=== PATIENT | female | born 1995 | race Caucasian/White ===

== ENCOUNTER 2018-04-05 16:50 | Emergency (ER) | payer OTHER ==
[2018-04-05] MEDS ORDERED: Nitrofurantoin Monohydrate/Macrocrystalline 100 MG Cap PO ONE (16:51)
[2018-04-05 17:04] VITALS: BP 130/79
[2018-04-05 17:38] LABS: CHLORIDE,CL 101 mEq/L (98-106); SODIUM,NA 137 mEq/L (136-145)
--- NOTE | 2018-04-05 17:46 | EDM.PDOC ---
ED HPI GENERAL MEDICAL PROBLEM - General Chief Complaint: Gastrointestinal Problem Stated Complaint: N/V/D 7 WEEKS Time Seen by Provider: 04/05/18 17:36 Source of Information: Reports: Patient History Limitations: Reports: No Limitations - History of Present Illness INITIAL COMMENTS - FREE TEXT/NARRATIVE: 22 year old female 7 weeks c/o nausea and vomiting, 4 times today and 4 times yesterday. Pt. also admits to diarrhea at least 5 times today and yesterday. Denies abdominal pain except for suprapubic tenderness. Denies any vaginal bleeding. 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) (zofran) Lower Abdomen Pain Score (Numeric/FACES): 5 - Related Data Allergies Allergy/AdvReac Type Severity Reaction Status Date / Time No Known Allergies Allergy Verified 04/05/18 17:07 Home Meds: Home Meds Montelukast [Singulair] 10 mg PO DAILY 12/26/15 [History] Ondansetron [Zofran ODT] 4 mg PO Q6H PRN 04/05/18 [History] Ranitidine HCl 150 mg PO BID 04/05/18 [History] Past Medical History HEENT History: Reports: Allergic Rhinitis, Impaired Vision 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: Endometriosis, , Other (See Below) Other OB/BYN History: ENDOMETRIAL SURGERY AND CERVICAL PRE CANCEROUS REMOVAL - Past Surgical History HEENT Surgical History: Reports: Oral Surgery Social & Family History - Family History Family Medical History: Noncontributory - Tobacco Use Smoking Status *Q: Never Smoker - Caffeine Use Caffeine Use: Reports: None - Recreational Drug Use Recreational Drug Use: No - Living Situation & Occupation Living situation: Reports: , with Spouse Occupation: Employed (works as [employer]ELER) ED ROS GENERAL - Review of Systems Review Of Systems: See Below Constitutional: Reports: Weakness, Fatigue, Decreased Appetite HEENT: Reports: No Symptoms Respiratory: Reports: No Symptoms Cardiovascular: Reports: No Symptoms Endocrine: Reports: No Symptoms GI/Abdominal: Reports: Diarrhea, Nausea, Vomiting : Reports: Pain, Other (suprapubic tenderness) Musculoskeletal: Reports: No Symptoms Skin: Reports: No Symptoms Neurological: Reports: No Symptoms Psychiatric: Reports: No Symptoms Hematologic/Lymphatic: Reports: No Symptoms Immunologic: Reports: No Symptoms ED EXAM, GI/ABD - Physical Exam Exam: See Below Exam Limited By: No Limitations General Appearance: Alert, WD/WN, No Apparent Distress Eyes: Bilateral: Normal Appearance, EOMI Ears: Normal External Exam, Normal Canal, Hearing Grossly Normal Nose: Normal Inspection, Normal Mucosa, No Blood Throat/Mouth: Normal Inspection, Normal Lips, Normal Teeth, Normal Gums, Normal Oropharynx, Normal Voice Head: Atraumatic, Normocephalic Neck: Normal Inspection, Supple, Non-Tender, Full Range of Motion Respiratory/Chest: No Respiratory Distress, Lungs Clear, Normal Breath Sounds, No Accessory Muscle Use Cardiovascular: Normal Peripheral Pulses, Regular Rate, Rhythm, No Edema, No Gallop, No JVD, No Murmur, No Rub GI/Abdominal Exam: Normal Bowel Sounds, Soft, No Organomegaly, No Distention, No Abnormal Bruit, No Mass, Tender, Other (mild suprapubic tenderness) (Female) Exam: Deferred Rectal (Female) Exam: Deferred Back Exam: Normal Inspection, Full Range of Motion Extremities: Normal Inspection, Normal Range of Motion, Non-Tender, No Pedal Edema Neurological: Alert, Oriented, CN II-XII Intact, Normal Cognition, Normal Gait Psychiatric: Normal Affect, Normal Mood Skin Exam: Warm, Dry, Intact, Normal Color, No Rash Lymphatic: No Adenopathy Course - Vital Signs Last Recorded V/S: Last Vital Signs Temp 36.2 C 04/05/18 16:59 Pulse 80 04/05/18 16:59 Resp 16 04/05/18 16:59 BP 130/79 04/05/18 16:59 Pulse Ox 98 04/05/18 16:59 - Orders/Labs/Meds Orders: Active Orders 24 hr Category Date Time Status POCTesting [POC Labs] [RC] ASDIRECTED Care 04/05/18 17:03 Inactive BASIC METABOLIC PANEL,BMP [CHEM] Stat Lab 04/05/18 17:05 Ordered CULTURE URINE [RM] Stat Lab 04/05/18 17:02 Ordered HCG QUALITATIVE,SERUM [CHEM] Stat Lab 04/05/18 17:14 Ordered URINALYSIS W/MICROSCOPIC [UA W/MICROSCOPIC] [URIN] Stat Lab 04/05/18 17:01 Ordered Labs: Laboratory Tests 04/05/18 Range/Units 17:25 WBC 10.0 (5.0-10.0) 10^3/uL RBC 4.05 (4.00-5.50) 10^6/uL Hgb 12.8 (12.0-16.0) g/dL Hct 36.7 L (37.0-47.0) % MCV 90.6 (82.0-94.0) fL MCH 31.6 (27.0-32.0) pg MCHC 34.9 (33.0-38.0) g/dL RDW Coeff of Jacque 12.4 (11.0-15.0) % Plt Count 267 (150-400) 10^3/uL Neut % (Auto) 68.1 (35-85) % Lymph % (Auto) 23.2 (10-55) % [place] % (Auto) 7.7 (0-16) % Eos % (Auto) 0.7 (0-5) % Baso % (Auto) 0.3 (0-3) % Neut # (Auto) 6.77 (1.80-7.00) 10^3/uL Lymph # (Auto) 2.31 (1.00-4.80) 10^3/uL [place] # (Auto) 0.77 (0.00-0.80) 10^3/uL Eos # (Auto) 0.07 (0.00-0.45) 10^3/uL Baso # (Auto) 0.03 10^3/uL Departure - Departure Time of Disposition: 18:58 Disposition: Home, Self-Care 01 Condition: Good Clinical Impression: Vomiting, Diarrhea, UTI, Urinary tract infectious disease - Discharge Information Instructions: Nausea and Vomiting, Adult, Urine Culture and Sensitivity Testing , Urinary Tract Infection, Adult, Diarrhea, Adult, [id number], Food Choices to Help Relieve Diarrhea, Adult Referrals: Samia Barillas PA [Primary Care Provider] - Additional Instructions: Follow up with Samia LEON in clinic on Saturday. Take medication as directed. Follow up on urine culture at clinic. Clear liquid diet x 24 hours, then a BRAT diet. - Problem List & Annotations (1) Diarrhea SNOMED Code(s): 44481659 Code(s): R19.7 - DIARRHEA, UNSPECIFIED Status: Acute Priority: Medium Current Visit: Yes (2) UTI, Urinary tract infectious disease SNOMED Code(s): 94856468 Code(s): N39.0 - URINARY TRACT INFECTION, SITE NOT SPECIFIED Status: Acute Priority: Low Current Visit: Yes (3) Vomiting SNOMED Code(s): 986422905 Code(s): R11.10 - VOMITING, UNSPECIFIED Status: Acute Priority: Medium Current Visit: Yes - Problem List Review Problem List Initiated/Reviewed/Updated: Yes - My Orders Last 24 Hours: My Active Orders 04/05/18 17:01 URINALYSIS W/MICROSCOPIC [UA W/MICROSCOPIC] [URIN] Stat 04/05/18 17:02 CULTURE URINE [RM] Stat 04/05/18 17:03 POCTesting [POC Labs] [RC] ASDIRECTED 04/05/18 17:05 BASIC METABOLIC PANEL,BMP [CHEM] Stat 04/05/18 17:14 HCG QUALITATIVE,SERUM [CHEM] Stat - Assessment/Plan Last 24 Hours: My Active Orders 04/05/18 17:01 URINALYSIS W/MICROSCOPIC [UA W/MICROSCOPIC] [URIN] Stat 04/05/18 17:02 CULTURE URINE [RM] Stat 04/05/18 17:03 POCTesting [POC Labs] [RC] ASDIRECTED 04/05/18 17:05 BASIC METABOLIC PANEL,BMP [CHEM] Stat 04/05/18 17:14 HCG QUALITATIVE,SERUM [CHEM] Stat Assessment:: 22 year female that is 7 weeks c/o increased vomiting and diarrhea that started 2 days ago. Viral gastroenteritis versus vomiting associated with . Rule out UTI, urine culture is pending. UTI can cause nausea/ vomiting. Plan: Vomiting -given Scopolamine patch and Zofran 4 mg IV --Zofran 4 mg q 6 hrs PRN vomiting --clear liquids for 24 hrs, then BRAT diet Diarrhea, may be viral illness. --to follow up with PCP on Saturday. --clear liquids for 24 hrs. then BRAT diet Possible UTI --given Macrodantin 2 take home packs and instructed to take twice daily until she follows up with PCP on Saturday.
[2018-04-05] MEDS ORDERED: Sodium Chloride 0.9% 1,000 ML IV ONE (18:01)
[2018-04-05] MEDS ORDERED: Take Home: Nitrofurantoin Monohydrate/Macrocrystalline 100 MG, 2 Cap Pack PO ONE (18:07)
[2018-04-05] MEDS ORDERED: Ondansetron 4 MG/2 ML SDV IVPUSH PRN (18:46)
[2018-04-05] MEDS ORDERED: Scopolamine 1.5 MG Transdermal Patch TRDERM PRN (18:50)
== END 2018-04-05 19:30 | disposition home or self-care (01) ==
LOC: CC.ED 16:50
DX: O23.41 Unspecified infection of urinary tract in pregnancy, first trimester (principal); O99.89 Other specified diseases and conditions complicating pregnancy, childbirth and the puerperium; R19.7 Diarrhea, unspecified; R11.2 Nausea with vomiting, unspecified; Z79.899 Other long term (current) drug therapy; Z3A.01 Less than 8 weeks gestation of pregnancy
CPT/HCPCS: 36415; 80048; 81001; 84703; 85025; 87086; 96360; 99283; A9270-GY; J2405; J7030

== ENCOUNTER → 2022-04-12 | Day surgery (SDC) | payer BC, OTHER ==
[~2022-04-12] MED LIST: Dexamethasone 4 MG/ML SDV ONE; Flumazenil 0.1 MG/ML 10 ML MDV ONE; Ketamine 200 MG/20 ML MDV ONE; Midazolam 1 MG/ML 2 ML SDV ONE; Ondansetron 4 MG/2 ML SDV ONE; Propofol 200 MG/20 ML SDV ONE
[2022-04-12] MEDS: Lactated Ringers 1,000 ML IV SCH (11:38)
[2022-04-12] MEDS: Lidocaine 1% with EPINEPHrine 1:100,000 20 ML MDV SUBCUT ONE (13:00)
[2022-04-12 14:08] VITALS: BP 122/64; PULSE 80
== END ==
LOC: CC.SDS 11:08
PROVIDERS: ATTEND Surgery
DX: D22.71 Melanocytic nevi of right lower limb, including hip (principal); F41.9 Anxiety disorder, unspecified; E66.9 Obesity, unspecified; Z79.899 Other long term (current) drug therapy; Z98.890 Other specified postprocedural states; Z68.36 Body mass index [BMI] 36.0-36.9, adult
CPT/HCPCS: 00400; J1100; J2250; J2405; J2704; J7120